=== PATIENT | female | born 1930 ===

== ENCOUNTER 2017-09-11 11:04 | Inpatient (IN) | payer MEDICARE ==
[2017-09-11 12:33] LABS: #Eosinphils 0.1 thou/uL (0.0-0.7); #Lymphocytes 1.2 thou/uL (1.20-3.40); #Monocytes 0.8 thou/uL (0.11-0.59); #Neutrophils 7.5 thou/uL (1.40-6.50); %Basophils 0.3 % (0.0-1.0); %Lymphocytes 12.8 % (21.0-51.0); %Monocytes 8.1 % (0.0-10.0); %Neutrophils 77.7 % (42.0-75.0); Hemoglobin 11.1 g/dL (12.0-16.0); Mean Corpuscular HGB CONC 31.8 g/dL (32.0-36.0); Mean Corpuscular Hemoglobin 28.2 pg (27.0-31.0); Mean Corpuscular Volume 88.7 fl (81.0-99.0); Mean Platelet Volume 8.9 fL (7.4-10.4); Platelet Count 200 thou/uL (130-400); RBC Distribution Width 13.8 % (11.5-14.5); Red Blood Cell (RBC) Count 3.94 mill/uL (4.20-5.40); White Blood Cell (WBC) Count 9.6 thou/uL (4.8-10.8)
[2017-09-11 12:59] LABS: ALT (SGPT) 30 U/L (8-55); AST (SGOT) 40 U/L (5-34); Albumin 3.7 g/dL (3.4-4.8); Alkaline Phosphatase 70 U/L (40-150); Anion Gap 19 mmol/L (10-20); BUN (Urea Nitrogen) 45 mg/dL (9.8-20.1); Bilirubin, Total 0.3 mg/dL (0.2-1.2); Calc. Creatinine Clearance 0 mL/min (70-130); Calcium 9.1 mg/dL (7.8-10.44); Carbon Dioxide 13 mmol/L (23-31); Chloride 110 mmol/L (98-107); Estimated GFR-MDRD 20; Glucose 102 mg/dL (83-110); Potassium 4.2 mmol/L (3.5-5.1); Protein, Total 7.7 g/dL (6.0-8.3); Sodium 138 mmol/L (136-145)
[2017-09-11 14:49] LABS: Bilirubin Moderate (Negative); Blood, Urine Negative (Negative); Clarity CLOUDY (Clear); Glucose, Urine (Dipstick) Negative (Negative); Leukocyte Moderate (Negative); Nitrite Negative (Negative); Protein, Urine (Dipstick) 30 mg/dL (Neg-Trace); Specific Gravity, Urine 1.027 (1.002-1.036)
[2017-09-11 14:52] LABS: Bacteria/HPF 1+ HPF (None Seen); Squamous Epithelial 0-3 HPF (0-3); WBC/HPF 21-50 HPF (0-3)
[2017-09-11 14:57] LABS: Hyaline Casts/LPF >50 HYALINE CAST LPF (0-3 Hyaline); Pathc Cast-AUWi Flag 8.13 (0-2.49)
[2017-09-11 15:03] LABS: RBC/HPF 0-3 HPF (0-3)
--- NOTE | 2017-09-11 15:04 | RAD ---
CHEST 1 VIEW: Date: 09/11/17 HISTORY: Dyspnea. COMPARISON: None. FINDINGS: Heart size is enlarged. Layering left pleural effusion. No pneumothorax. There is a density in the right mid lung peripherally. There are severe degenerative changes of the shoulder joints. Subacromial narrowing bilaterally. IMPRESSION: 1. Cardiomegaly with layering left effusion and left retrocardiac opacity. Opacity may reflect atele ctasis or infection. Follow-up recommended. 2. Peripheral right mid lung opacity. Without a comparison, it is unknown if this is a chronic findi ng. Follow-up 2 views of chest in 2 weeks recommended. POS: [facility]
[2017-09-11 15:17] LABS: CKMB 2.1 ng/mL (0-6.6); Troponin I 0.136 ng/mL (< 0.028)
[2017-09-11] MEDS ORDERED: Furosemide 40 MG/4 ML VIAL ONE (15:57)
[2017-09-11] MEDS ORDERED: Acetaminophen 325 MG TAB PO PRN (16:17)
[2017-09-11] MEDS ORDERED: Guaifenesin DM 100-10/5 ML UDCUP PO PRN (16:17)
[2017-09-11] MEDS ORDERED: Acetaminophen 500 MG TAB ONE (16:31)
[2017-09-11 17:50] LABS: Lactic Acid 7.3 mmol/L (0.5-2.2)
[2017-09-11 18:38] VITALS: BMI 25.5
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
[2017-09-11] MEDS: Docusate 100 MG CAP PO SCH (20:34)
[2017-09-11] MEDS: Carvedilol 3.125 MG TAB PO SCH (20:34)
[2017-09-11] MEDS ORDERED: FLU VACC TS2017-18 (>65YR) 0.5 ML SYRINGE IM ONE (21:00)
[2017-09-11] MEDS ORDERED: Prevnar 13-Val Conj/PF 0.5 ML SYRINGE IM ONE (21:00)
[2017-09-11] MEDS ORDERED: Famotidine 20 MG TAB PO SCH (21:00)
[2017-09-12] MEDS: Furosemide 40 MG/4 ML VIAL SLOW IVP SCH ×2 (05:35→15:00)
[2017-09-12 05:39] LABS: #Eosinphils 0.1 thou/uL (0.0-0.7); #Lymphocytes 0.9 thou/uL (1.20-3.40); #Monocytes 0.6 thou/uL (0.11-0.59); #Neutrophils 10.2 thou/uL (1.40-6.50); %Basophils 0.1 % (0.0-1.0); %Eosinophils 0.5 % (0.0-10.0); %Lymphocytes 7.6 % (21.0-51.0); %Monocytes 5.2 % (0.0-10.0); %Neutrophils 86.7 % (42.0-75.0); Hemoglobin 10.3 g/dL (12.0-16.0); Mean Corpuscular HGB CONC 32.5 g/dL (32.0-36.0); Mean Corpuscular Hemoglobin 27.6 pg (27.0-31.0); Mean Corpuscular Volume 84.7 fl (81.0-99.0); Mean Platelet Volume 9.2 fL (7.4-10.4); Platelet Count 150 thou/uL (130-400); Red Blood Cell (RBC) Count 3.75 mill/uL (4.20-5.40); White Blood Cell (WBC) Count 11.8 thou/uL (4.8-10.8)
[2017-09-12 05:44] LABS: Anion Gap 22 mmol/L (10-20); BUN (Urea Nitrogen) 50 mg/dL (9.8-20.1); Calc. Creatinine Clearance 18 mL/min (70-130); Calcium 8.7 mg/dL (7.8-10.44); Carbon Dioxide 11 mmol/L (23-31); Chloride 113 mmol/L (98-107); Estimated GFR-MDRD 21; Glucose 92 mg/dL (83-110); Potassium 4.1 mmol/L (3.5-5.1); Sodium 142 mmol/L (136-145)
[2017-09-12 07:19] VITALS: BP 116/67; TEMP 97.5
[2017-09-12] MEDS ORDERED: cefTRIAXone\\ROCEPHIN 1 GM in Sodium Chloride 0.9% 100 ML IVPB SCH (08:00)
--- NOTE | 2017-09-12 08:06 | CT ---
PRELIMINARY REPORT/[facility]/EMERGENCY AFTER HOURS PROCEDURE: EXAM: CT Head Without Intravenous Contrast CLINICAL HISTORY: 86 years old, female; Signs and symptoms; Altered mental status/memory loss; Confusion or disorientat ion; Patient HX: AMS TECHNIQUE: Axial computed tomography images of the head/brain without intravenous contrast. COMPARISON: No relevant prior studies available. FINDINGS: Brain: Scattered areas of hypoattenuation, likely chronic small vessel ischemic change, demyelination , or gliosis. There is parenchymal atrophy. Ventricles: Normal. Bones/joints: Normal. No acute fracture. Soft tissues: Normal. Vasculature: Atherosclerotic vascular calcifications. Sinuses: Normal. Mastoid air cells: Normal as visualized. No mastoid effusion. IMPRESSION: 1. No acute findings. 2. Non-acute findings are described above. Thank you for allowing us to participate in the care of your patient. Dictated and Authenticated by: Ben Blackwell MD 09/12/2017 12:49 AM Central Time ([place] & [place]) FINAL REPORT NONCONTRAST HEAD CT: Date: 09/11/17 HISTORY: Left-sided facial droop and weakness. Evaluate for CVA. FINDINGS: This report is in agreement with the preliminary report by Riya. No acute intracranial process. There are chronic small vessel ischemic changes of the white matter. Age-appropriate atrophy is noted. POS: [facility]
[2017-09-12] MEDS: Docusate 100 MG CAP PO SCH (08:35)
[2017-09-12] MEDS: Carvedilol 3.125 MG TAB PO SCH (08:36)
[2017-09-12] MEDS ORDERED: Enoxaparin Sodium 30 MG/0.3 ML SYRINGE SC SCH (09:00)
--- NOTE | 2017-09-12 13:38 | PDOC.PN ---
- Subjective Encounter Start Date: 09/12/17 Encounter Start Time: 10:05 Subjective: lethargic, awakens to touch -: mild sob - Objective Resuscitation Status: Resuscitation Status DNR:Do Not Resuscitate MAR Reviewed: Yes Vital Signs & Weight: Vital Signs (12 hours) Temp Pulse Resp BP Pulse Ox 09/12/17 07:45 97.5 F L 88 18 96 09/12/17 07:18 97.5 F L 88 18 116/67 96 09/12/17 03:42 97.8 F 91 18 138/63 Weight Weight 129 lb 3.2 oz I&O: 09/11/17 09/12/17 09/13/17 06:59 06:59 06:59 Intake Total 100 Output Total 225 Balance -125 Result Diagrams: 09/12/17 04:04 09/12/17 04:04 Additional Labs: Accuchecks 09/11/17 09/11/17 22:51 21:17 POC Glucose 105 102 Phys Exam - Physical Examination HEENT: PERRLA, sclera anicteric Neck: no JVD, supple Respiratory: no wheezing rales++ Cardiovascular: RRR, no significant murmur Gastrointestinal: soft, no distention, positive bowel sounds Musculoskeletal: pulses present, edema present likely Left hemiparesis-old Dx/Plan (1) Acute exacerbation of CHF (congestive heart failure) Code(s): I50.9 - HEART FAILURE, UNSPECIFIED Status: Acute Qualifiers: Heart failure type: unspecified Qualified Code(s): I50.9 - Heart failure, unspecified (2) LORETTA (acute kidney injury) Code(s): N17.9 - ACUTE KIDNEY FAILURE, UNSPECIFIED Status: Acute (3) Dementia Code(s): F03.90 - UNSPECIFIED DEMENTIA WITHOUT BEHAVIORAL DISTURBANCE Status: Chronic Qualifiers: Dementia type: unspecified type Dementia behavioral disturbance: without behavioral disturbance Qualified Code(s): F03.90 - Unspecified dementia without behavioral disturbance (4) FTT (failure to thrive) in adult Status: Chronic (5) Moderate protein malnutrition Code(s): E44.0 - MODERATE PROTEIN-CALORIE MALNUTRITION Status: Chronic - Plan Around 11.13 am pt -: family at bedside -: body will be released to family per hosp protocol * .
[2017-09-12] MEDS ORDERED: cefTRIAXone\\ROCEPHIN 1 GM, Syringe 0.4 ML in Sterile Water 9.6 ML SLOW IVP SCH (15:00)
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
--- NOTE | 2017-09-19 06:13 | PQF ---
SHAQUILLE BURT, AHMET SAMUELS MD [id number] [facility]-257 [id number] CLINICAL DOCUMENTATION CLARIFICATION FORM: POST DISCHARGE Addendum to original discharge summary date: 09/12/2017 DATE: 09/19/2017 ATTN: Dr. Chester Please exercise your independent, professional judgment in responding to the clarification form. 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 3-2 Nursing assessment: total assist /total feeding assist. RISK FACTORS H&P: advanced dementia ; severe physical deconditioning; failure to thrive. TREATMENT: 3-2 Nursing assessment: total assist / feeding / turning Q2H. (This form is maintained as a part of the permanent medical record) [employer]. All Rights Reserved [email or web address] [phone] [email or web address]
== END 2017-09-12 18:06 | disposition expired | DRG 291 ==
LOC: ERS 11:04 → 2NO 15:51
PROVIDERS: ADMIT Internal Medicine; ATTEND Internal Medicine
DX: I11.0 Hypertensive heart disease with heart failure (principal); R53.2 Functional quadriplegia; N17.9 Acute kidney failure, unspecified; E44.0 Moderate protein-calorie malnutrition; I24.8 Other forms of acute ischemic heart disease; N39.0 Urinary tract infection, site not specified; E86.0 Dehydration; I50.31 Acute diastolic (congestive) heart failure; Z66 Do not resuscitate; F03.90 Unspecified dementia, unspecified severity, without behavioral disturbance, psychotic disturbance, mood disturbance, and anxiety; R62.7 Adult failure to thrive; K21.9 Gastro-esophageal reflux disease without esophagitis; R09.02 Hypoxemia; Z68.25 Body mass index [BMI] 25.0-25.9, adult; Z74.01 Bed confinement status; Z79.899 Other long term (current) drug therapy
CPT/HCPCS: 36415; 36416; 51702; 70450; 71045; 80048; 80053; 81003; 81015; 82550; 82553; 83605; 83880; 84484; 85025; 87040; 87077; 87086; 87186; 87804; 90471; 90670; 90682; 93005; 93306; 93798; 94760; 96361; 96374; 96375; A4216; G0008; G0009; J0696; J1650; J1940; Q2036